=== PATIENT | female | born 1980 | race Caucasian/White ===

== ENCOUNTER 2018-10-22 12:12 | Emergency (ER) | payer OTHER ==
[~2018-10-22] VITALS: Ht 170.2 cm; Wt 66.8 kg
[2018-10-22 13:19] VITALS: BP 121/78
== END 2018-10-22 13:49 | disposition home or self-care (01) ==
LOC: ED 12:30
DX: N30.01 Acute cystitis with hematuria (principal)
CPT/HCPCS: 36415; 80053; 81001; 83690; 84703; 85025; 87077; 87086; 87186; 99283